=== PATIENT | female | born 1990 | race Caucasian/White ===

== ENCOUNTER 2020-08-10 14:18 | Emergency (ER) | payer MEDICAID ==
[~2020-08-10] VITALS: Ht 154.9 cm; Wt 77.1 kg
[2020-08-10 14:21] VITALS: Ht 154.9 cm; Wt 77.1 kg
[2020-08-10 15:22] LABS: PLATELET COUNT 240 x10^3mcL (179-408); RED CELL DISTRIBUTION WIDTH 13.6 % (12.3-17.7)
[2020-08-10 15:42] LABS: CALCIUM 7.9 mg/dL (8.5-10.1); CARBON DIOXIDE 25.1 mmol/L (21-32); CHLORIDE SERUM 103 mmol/L (98-107); CREATININE SERUM 0.5 mg/dL (0.6-1.0); GFR1 > 60 mL/min; GLUCOSE SERUM 87 mg/dL (74-106); POTASSIUM SERUM 3.5 mmol/L (3.5-5.1); SODIUM SERUM 137 mmol/L (136-145)
[2020-08-10 15:47] LABS: ALKALINE PHOSPHATASE 95 U/L (46-116); ALT/SGPT 15 U/L (14-59); AST/SGOT 12 U/L (15-37); BILIRUBIN TOTAL 0.1 mg/dL (0.20-1.00); TOTAL PROTEIN, SERUM 6.2 g/dL (6.4-8.2)
[2020-08-10 15:48] LABS: ALBUMIN 2.3 g/dL (3.4-5.0)
[2020-08-10 17:33] LABS: BAND NEUTROPHIL 1 % (0-10); BASOPHIL 0 % (0-2); METAMYELOCTE 1 % (0-2); MONOCYTE 7 % (0-7); SEGMENTED NEUTROPHILS 79 % (37-75)
[2020-08-10 17:36] LABS: rbc morphology (normal/abnorm) NORMAL (NORMAL)
[2020-08-10 17:40] LABS: PLATELET MORPHOLOGY PLATELETS NORMAL
[2020-08-10 17:42] VITALS: BP 121/71
== END 2020-08-10 17:42 | disposition home or self-care (01) ==
LOC: ED 14:18
PROVIDERS: Emergency Medicine
DX: O26.892 Other specified pregnancy related conditions, second trimester (principal); O21.8 Other vomiting complicating pregnancy; R42 Dizziness and giddiness; R10.816 Epigastric abdominal tenderness; Z3A.28 28 weeks gestation of pregnancy; Z88.8 Allergy status to other drugs, medicaments and biological substances; Z88.0 Allergy status to penicillin